=== PATIENT | male | born 1940 | race Caucasian/White ===

== ENCOUNTER 2017-12-03 23:30 | Inpatient (IN) | payer MEDICARE, BC ==
[~2017-12-03] VITALS: Ht 149.9 cm; Wt 65.4 kg
--- NOTE | ~2017-12-03 | PN ---
PATIENT:DEANNE MANCIA MEDICAL RECORD: [id number] LOCATION:[facility] ADMISSION DATE: 12/03/17 PROGRESS NOTE DATE OF SERVICE: 12/22/2017 SUBJECTIVE: The patient's case was discussed with staff. He has no new complaint. OBJECTIVE: The patient is in good behavioral control with limited insight about his condition. He does occasionally require p.r.n. Geodon as it seems to help with his agitation. ASSESSMENT: No change in diagnoses. PLAN: The patient's long-term prognosis is poor. He is going to be discharged tomorrow with hospice care. TRANSINT:[id number] Voice Confirmation ID: [id number] DOCUMENT ID: [id number] MISA ANDRE MD at 0826 CC: [id number] DICTATION DATE: 12/22/17 1416 LAW OFFICE MANAGER: 12/22/17 1534 DIS IN 12/22/17 [facility] [address] [place] [address]
--- NOTE | ~2017-12-03 | PN ---
PATIENT:DEANNE MANCIA MEDICAL RECORD: [id number] LOCATION:[facility] ADMISSION DATE: 12/03/17 PROGRESS NOTE DATE OF SERVICE: 12/19/2017 SUBJECTIVE: No new complaint. OBJECTIVE: The patient is overall better. He is taking medications as prescribed. Plans are for him to be discharged to hospice care on Friday. On exam, mood is euthymic. Affect is reserved. Speech is rather terse. Content of thought shows no overt psychosis. Sensorium shows no change. ASSESSMENT: No change in diagnosis. PLAN: 1. Maintain current medication. 2. Continue supportive therapy. TRANSINT:[id number] Voice Confirmation ID: [id number] DOCUMENT ID: [id number] DAGOBERTO MEI III, MD at 0703 CC: [id number] DICTATION DATE: 12/19/17 1003 SALES FLOOR ASSOCIATE: 12/19/17 1113 ADM IN [place] [id number] [place] [id number]
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
--- NOTE | ~2017-12-03 | PN ---
PATIENT:DEANNE MANCIA MEDICAL RECORD: [id number] LOCATION:[facility] ADMISSION DATE: 12/03/17 PROGRESS NOTE DATE OF SERVICE: 12/09/2017 SUBJECTIVE: The patient's case was discussed with staff. He has no new complaint. OBJECTIVE: The patient is in good behavioral control with limited insight about his condition. He generally tolerates his medicines well. ASSESSMENT: No change in diagnoses. PLAN: The patient was agitated this morning and required p.r.n. Vicdon. I am going to prescribe Trilafon for him at a dose of 2 mg at bedtime. His long-term prognosis is guarded. I am concerned about his oral intake. He says he will try to eat more. TRANSINT:[id number] Voice Confirmation ID: [id number] DOCUMENT ID: [id number] MISA ANDRE MD at 1218 CC: [id number] DICTATION DATE: 12/09/17 1448 SENIOR MECHANICAL PROJECT ENGINEER: 12/09/17 1459 ADM IN [place] [id number] [place] [id number]
--- NOTE | ~2017-12-03 | PN ---
PATIENT:DEANNE MANCIA MEDICAL RECORD: [id number] LOCATION:[facility] ADMISSION DATE: 12/03/17 PROGRESS NOTE DATE OF SERVICE: 12/08/2017 SUBJECTIVE: The patient's case was discussed with staff. He has no new complaint. OBJECTIVE: The patient is impulsive and labile. He is very difficult to redirect. ASSESSMENT: No change in diagnoses. PLAN: The patient's Depakote is going to be increased to 500 mg twice daily. I am also going to start him on Megace for its appetite stimulating properties. His long-term prognosis is guarded. TRANSINT:[id number] Voice Confirmation ID: [id number] DOCUMENT ID: [id number] MISA ANDRE MD at 1344 CC: [id number] DICTATION DATE: 12/08/17 1425 RETAIL OPERATIONS MANAGER: 12/08/17 1446 ADM IN [facility] [address] [place] [id number]
--- NOTE | ~2017-12-03 | PN ---
PATIENT:DEANNE MANCIA MEDICAL RECORD: [id number] LOCATION:[facility] ADMISSION DATE: 12/03/17 PROGRESS NOTE DATE OF SERVICE: 12/16/2017 SUBJECTIVE: The patient's case was discussed with staff. He has no new complaint. OBJECTIVE: The patient is in good behavioral control with limited insight about his condition. He does tolerate his medicines well. ASSESSMENT: No change in diagnoses. PLAN: Brief supportive and educational interventions were made. Long-term prognosis is guarded. TRANSINT:[id number] Voice Confirmation ID: [id number] DOCUMENT ID: [id number] MISA ANDRE MD at 1444 CC: [id number] DICTATION DATE: 12/16/17 1517 CORRECTIONAL CASE MANAGER: 12/16/17 1529 ADM IN [place] [id number] [place] [id number]
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
--- NOTE | ~2017-12-03 | PN ---
PATIENT:DEANNE MANCIA MEDICAL RECORD: [id number] LOCATION:[facility] ADMISSION DATE: 12/03/17 PROGRESS NOTE DATE OF SERVICE: 12/10/2017 SUBJECTIVE: The patient's case was discussed with staff. He has no new complaint. OBJECTIVE: The patient is in good behavioral control. He has no thoughts of harming himself or others. He does tolerate his medicines well. ASSESSMENT: No change in diagnoses. PLAN: Supportive and educational interventions were made. Long-term prognosis is guarded. TRANSINT:[id number] Voice Confirmation ID: [id number] DOCUMENT ID: [id number] MISA ANDRE MD at 1341 CC: [id number] DICTATION DATE: 12/10/17 1234 MECHANICAL SOUND TECHNICIAN: 12/10/17 1246 ADM IN [place] [id number] [place] [address]
--- NOTE | ~2017-12-03 | PN ---
PATIENT:DEANNE MANCIA MEDICAL RECORD: [id number] LOCATION:[facility]idal112 ADMISSION DATE: 12/03/17 PROGRESS NOTE DATE OF SERVICE: 12/18/2017 SUBJECTIVE: The patient's case was discussed with staff. He has no new complaint. OBJECTIVE: The patient denies intent to harm himself or others. He is severely impaired cognitively. He has had multiple p.r.n. doses of medication because of his agitation. ASSESSMENT: No change in diagnoses. PLAN: Current medicines have been reviewed and will be maintained. I am going to check another Depakote level to ensure that it is at an adequate dose. TRANSINT:[id number] Voice Confirmation ID: [id number] DOCUMENT ID: [id number] MISA ANDRE MD at 0841 CC: [id number] DICTATION DATE: 12/18/17 1420 CITRIX ENGINEER: 12/18/17 1607 ADM IN [place] [address] [place] [address]
--- NOTE | ~2017-12-03 | PN ---
PATIENT:DEANNE MANCIA MEDICAL RECORD: [id number] LOCATION:[facility] ADMISSION DATE: 12/03/17 PROGRESS NOTE DATE OF SERVICE: 12/12/2017 SUBJECTIVE: No new complaint. OBJECTIVE: The patient continues to show evidence of significant dementia. He has great difficulty cooperating with staff. He has been combative and had to be redirected from this. On exam, mood is restless and irritable. Affect is very shallow. Speech is quite terse. Content of thought appears to be focused primarily on somatic concerns. Sensorium shows no change. ASSESSMENT: No change in diagnosis. PLAN: 1. Continue current medication. 2. Continue supportive therapy. TRANSINT:[id number] Voice Confirmation ID: [id number] DOCUMENT ID: [id number] DAGOBERTO MEI III, MD at 1037 CC: [id number] DICTATION DATE: 12/12/17 1116 IT LEAD: 12/12/17 1259 ADM IN [place] [id number] [place] [address]
--- NOTE | ~2017-12-03 | PN ---
PATIENT:DEANNE HENDRICKS MEDICAL RECORD: [id number] LOCATION:[facility]112 ADMISSION DATE: 12/03/17 PROGRESS NOTE DATE OF SERVICE: 12/11/2017 SUBJECTIVE: The patient's case was discussed with staff. He has no new complaint. OBJECTIVE: The patient is in good behavioral control with limited insight about his condition. He tolerates his medicines well. ASSESSMENT: No change in diagnoses. PLAN: The patient was aggressive today. I am going to check a Depakote level. I think the medicines he is on may become more efficacious if given a little bit longer. Yesterday after I already documented on the patient, I had a 30-minute phone call with his , Ms. Alma Hendricks. She is having a great deal of difficulty accepting that the patient's condition cannot be reversed and I think that is very unlikely. I recommended she take him to [facility], but she indicated he has been there and they have told her the same thing I have. I do not know what to say about that except that it certainly is a sad situation. I have offered to assist her in making arrangements for additional evaluations if she thinks that would be helpful. She cried extensively and said she will talk about it with her daughters. It is my opinion that yes this patient's condition has been complicated by neurosurgery, but there almost certainly was a preexisting dementia and whatever the relative mix of head injury from surgery and fall versus preexisting dementia symptoms is difficult to say. I am sure it is a mixed bag, but the bottom line in my opinion is that this is a very advanced condition with little or nothing that can be done to improve it other than bringing him in to behavioral control pharmacologically so that he can be managed either at home or in a retirement setting. The wants to take him home, which of course is fine. I have discussed the relative risks and benefits of this with her and I think it is probably time for her to have some sort of mental health counseling given her degree of distress and unwillingness to accept her 's condition. I did not suggest that to her at this time because it might have been taken as inflammatory, but I will do so directly or through the child welfare social worker. She clearly is not coming to packing machine tender with the condition that is not new. TRANSINT:[id number] Voice Confirmation ID: [id number] DOCUMENT ID: [id number] MISA ANDRE MD at 0804 CC: [id number] DICTATION DATE: 12/11/17 1415 SERVOMECHANISM ASSEMBLER: 12/11/17 1642 ADM IN [place] [id number] [place] [id number]
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
--- NOTE | ~2017-12-03 | PN ---
PATIENT:DEANNE MANCIA MEDICAL RECORD: [id number] LOCATION:[facility]112 ADMISSION DATE: 12/03/17 PROGRESS NOTE DATE OF SERVICE: 12/15/2017 SUBJECTIVE: The patient's case was discussed with staff. He has no new complaint. OBJECTIVE: The patient is severely impaired cognitively. He is not eating or sleeping well. He has almost no cognition present. His family continues to feel that this is not dementia, that it is somehow psychiatric. Apparently, he has had fairly extensive evaluations and HAS BEEN DEEMED TO BE ALLERGIC TO ZYPREXA, HALDOL, SEROQUEL, AND ATIVAN indicating that multiple individuals or attempts have been made to treat his behaviors. It is my opinion that he likely had a significant dementia present prior to having the cerebral aneurysm and that the subsequent subdural hematoma and minesh hole procedure were additional insult that damaged and already impaired brain. There is no evidence of anything acute toxic, metabolic, or delirious about his condition. As unfortunate as it is it does appear that this brain injured gentleman is not likely to experience significant improvement. The goal for treatment here is to make him manageable to those who want to care for him. The and 3 daughters had a very long meeting with our social work associate and Dr. Montalvo today. They seem to have a better grasp on his condition, although their acceptance of this is still not entirely clear. Offers were made to discharge him or assist in transferring him to another facility as I made the same offer last week. The patient has already been to [facility] and they felt there was nothing else they could do and sent him to [facility] for rehabilitative services. The patient is not capable of participating in rehabilitative services and it continues to be my opinion that his situation is irreversible and that palliative or hospice care measures are appropriate. TRANSINT:[id number] Voice Confirmation ID: [id number] DOCUMENT ID: [id number] MISA ANDRE MD at 1016 CC: [id number] DICTATION DATE: 12/15/171907 DIRECTOR FOOD AND BEVERAGE: 12/16/17 0334 ADM IN [facility] [address] [place] [address]
--- NOTE | ~2017-12-03 | PN ---
PATIENT:DEANNE MANCIA MEDICAL RECORD: [id number] LOCATION:[facility] ADMISSION DATE: 12/03/17 PROGRESS NOTE DATE OF SERVICE: 12/17/2017 SUBJECTIVE: The patient's case was discussed with staff. He has no new complaint. OBJECTIVE: The patient is in better behavioral control, but continues to have poor oral intake. ASSESSMENT: No change in diagnoses. PLAN: The patient is going to go home with hospice as soon as hospice and family can make the necessary arrangements. He is talking a little better, but is still not eating and is obviously severely impaired cognitively. TRANSINT:[id number] Voice Confirmation ID: [id number] DOCUMENT ID: [id number] MISA ANDRE MD at 1403 CC: [id number] DICTATION DATE: 12/17/17 1453 DRIVER/SALES WORKERS: 12/17/17 1603 ADM IN [facility] [address] [place] [id number]
--- NOTE | ~2017-12-03 | PN ---
PATIENT:DEANNE MANCIA MEDICAL RECORD: [id number] LOCATION:[facility] ADMISSION DATE: 12/03/17 PROGRESS NOTE DATE OF SERVICE: 12/05/2017 SUBJECTIVE: No new complaint. OBJECTIVE: The patient has continued to show aggressive and occasionally combative behavior. The patient has a past history of traumatic brain injury and resultant dementia. He has been placed on Geodon as well as Depakote as of yesterday. On exam, mood is irritable. Affect is very shallow. Speech is tangential and nonfocused. Content of thought is unchanged. Sensorium unchanged. ASSESSMENT: No change in diagnosis. PLAN: 1. Maintain current medication treatment plan. 2. Continue supportive therapy. TRANSINT:[id number] Voice Confirmation ID: [id number] DOCUMENT ID: [id number] DAGOBERTO MEI III, MD at 1341 CC: [id number] DICTATION DATE: 12/05/17 1147 BUSINESS INFORMATION CONSULTANT: 12/05/17 1153 ADM IN [place] [id number] [place] [id number]
[~2017-12-03 23:30] MED LIST: NEURONTIN 300300 MG PO
[2017-12-03] MEDS ORDERED: CARDURA1 MG PO (23:55)
[2017-12-03] MEDS ORDERED: DEPAKOTE ER250 MG PO (23:57)
[2017-12-03] MEDS ORDERED: GABAPENTIN100 MG PO (23:59)
[2017-12-04] MEDS ORDERED: LIPITOR20 MG PO
[2017-12-04] MEDS ORDERED: MELATONIN 3 MG1 TAB PO (00:01)
[2017-12-04] MEDS ORDERED: OMEPRAZOLE40 MG PO (00:23)
[2017-12-04] MEDS ORDERED: COLACE100 MG PO (00:24)
[2017-12-04] MEDS ORDERED: KEPPRA SOLU100 MG/ML PO (00:25)
[2017-12-04] MEDS ORDERED: ENULOSE10 G/15 ML PO (00:26)
[2017-12-04 03:00] VITALS: BP 147/88
[2017-12-04 04:31] LABS: APPEARANCE CLEAR (CLEAR); BILIRUBIN NEGATIVE (NEGATIVE); COLOR YELLOW (YELLOW); GLUCOSE NEGATIVE (NEGATIVE); KETONE NEGATIVE (NEGATIVE); NITRITE NEGATIVE (NEGATIVE); PROTEIN NEGATIVE (NEGATIVE); UROBILINOGEN NORMAL (NORMAL)
[2017-12-04 04:34] LABS: BACTERIA FEW /hpf (NONE SEEN); EPITHELIAL CELLS 0-5 /hpf (0-5); MUCUS <1+ /lpf (NONE SEEN); RED CELLS - URINE 0-5 /hpf (0-5); WHITE CELLS - URINE 0-5 /hpf (0-5)
[2017-12-04 08:11] VITALS: BP 101/65
[2017-12-04 10:34] LABS: ALBUMIN 3.3 g/dL (3.4-5.0); ALKALINE PHOSPHATASE 115 U/L (46-116); ALT (SGPT) 25 U/L (10-68); BILIRUBIN - TOTAL 0.58 mg/dL (0.2-1.3); CALC OSMOLALITY 281 mosm/kg (275-300); CALCIUM 8.9 mg/dL (8.5-10.1); CARBON DIOXIDE 29.6 mmol/L (21.0-32.0); CHLORIDE - SERUM 105 mmol/L (98-107); CHOL - HDL RATIO 2.2 ratio (2.3-4.9); CHOLESTEROL, TOTAL 146 mg/dL (0-200); CREATININE - SERUM 0.9 mg/dL (0.6-1.3); GLUCOSE 92 mg/dL (74-106); HDL CHOLESTEROL 67 mg/dL (32-96); LDL CHOLESTEROL 71 mg/dL (0-100); LDL-HDL RATIO 1.1 ratio (1.5-3.5); POTASSIUM - SERUM 3.8 mmol/L (3.5-5.1); PROTEIN - SERUM 7.2 g/dL (6.4-8.2); SODIUM 142 mmol/L (136-145); THYROID STIMULATING HORMONE 0.67 uIU/mL (0.36-3.74); TRIGLYCERIDE 44 mg/dL (30-200); UREA NITROGEN 11 mg/dL (7-18); eGFR NON AFRICAN AMERICAN 87 mL/min (90-120)
[2017-12-04 10:35] LABS: BASOPHILS 0.3 % (0-2); EOSINOPHILS 0.5 % (0-7); HEMATOCRIT 44.1 % (42.0-54.0); HEMOGLOBIN 14.3 g/dL (13.5-17.5); IMMATURE GRANULOCYTES 0.1 % (0-5); LYMPHOCYTES 14.9 % (15-50); MCH 30.2 pg (26.0-34.0); MCHC 32.4 g/dL (31.0-37.0); MCV 93.2 fL (80.0-100.0); MEAN PLATELET VOLUME 10.6 fL (7.4-10.4); MONOCYTES 5.5 % (2-11); NEUTROPHILS 78.7 % (40-80); PLATELET COUNT 218 10x3/uL (130-400); RBC 4.73 10x6/uL (4.20-6.10); RDW 13.1 % (11.5-14.5); WBC 7.6 10x3/uL (4.8-10.8)
[2017-12-04 20:13] VITALS: BP 166/82
[2017-12-05 06:13] LABS: RAPID PLASMA REAGIN Non Reactive (Non Reactive)
[2017-12-05 08:16] LABS: FOLATE (FOLIC ACID) - SERUM 18.1 ng/mL (>3.0)
[2017-12-05 10:17] LABS: VITAMIN D 25 HYDROXY 31.4 ng/mL (30.0-100.0)
[2017-12-06 12:49] VITALS: BP 128/82
[2017-12-07 07:00] VITALS: BP 148/77
[2017-12-07 21:12] VITALS: BP 122/58
[2017-12-08 07:28] VITALS: BP 121/68
[2017-12-08 21:22] VITALS: BP 131/66
[2017-12-09 09:45] VITALS: BP 100/44
[2017-12-09 19:41] VITALS: BP 127/69
[2017-12-10 08:54] VITALS: BP 107/76
[2017-12-11 22:50] VITALS: BP 114/62
[2017-12-12 09:45] VITALS: BP 136/76
[2017-12-12 19:20] VITALS: BP 120/56
[2017-12-13 09:41] VITALS: BP 150/74
[2017-12-13 20:49] VITALS: BP 156/70
[2017-12-13 22:25] LABS: BASOPHILS 0.1 % (0-2); EOSINOPHILS 1.1 % (0-7); HEMATOCRIT 46.2 % (42.0-54.0); HEMOGLOBIN 15.3 g/dL (13.5-17.5); IMMATURE GRANULOCYTES 0.4 % (0-5); MCH 30.2 pg (26.0-34.0); MCHC 33.1 g/dL (31.0-37.0); MCV 91.3 fL (80.0-100.0); MEAN PLATELET VOLUME 11.3 fL (7.4-10.4); MONOCYTES 10.3 % (2-11); NEUTROPHILS 61.1 % (40-80); PLATELET COUNT 178 10x3/uL (130-400); RBC 5.06 10x6/uL (4.20-6.10); RDW 12.9 % (11.5-14.5); WBC 7.5 10x3/uL (4.8-10.8)
[2017-12-13 22:40] LABS: ALKALINE PHOSPHATASE 108 U/L (46-116); ALT (SGPT) 34 U/L (10-68); BILIRUBIN - DIRECT 0.03 mg/dL (0.00-0.30); BILIRUBIN - INDIRECT 0.47 mg/dL (0.00-1.00); CALC OSMOLALITY 287 mosm/kg (275-300); CARBON DIOXIDE 28.2 mmol/L (21.0-32.0); CHLORIDE - SERUM 107 mmol/L (98-107); CREATININE - SERUM 0.8 mg/dL (0.6-1.3); GLUCOSE 94 mg/dL (74-106); POTASSIUM - SERUM 5.6 mmol/L (3.5-5.1); PROTEIN - SERUM 6.8 g/dL (6.4-8.2); SODIUM 143 mmol/L (136-145); UREA NITROGEN 21 mg/dL (7-18); VALPROIC ACID (DEPAKOTE) 36.5 ug/mL (50.0-100.0); eGFR NON AFRICAN AMERICAN > 90 mL/min (90-120)
[2017-12-14 07:00] VITALS: BP 127/68
[2017-12-14 19:25] VITALS: BP 140/45
[2017-12-15 20:09] VITALS: BP 121/69
[2017-12-16 07:00] VITALS: BP 144/91
[2017-12-16] MEDS ORDERED: MEGACE40 MG PO (10:11)
[2017-12-16] MEDS ORDERED: DEPAKOTE SPRIN125 MG PO (10:12)
[2017-12-16] MEDS ORDERED: VITAMIN D5000 UNIT PO (10:14)
[2017-12-16] MEDS ORDERED: FLORAJEN3 CAPS460 MG PO (10:14)
[2017-12-16 19:57] VITALS: BP 143/69
[2017-12-17 07:27] VITALS: BP 100/74
[2017-12-17 13:42] VITALS: Ht 149.9 cm; Wt 65.4 kg
[2017-12-18 06:37] LABS: APPEARANCE CLEAR (CLEAR); BILIRUBIN NEGATIVE (NEGATIVE); COLOR YELLOW (YELLOW); GLUCOSE NEGATIVE (NEGATIVE); KETONE MODERATE mg/dL (NEGATIVE); NITRITE NEGATIVE (NEGATIVE); PROTEIN NEGATIVE (NEGATIVE); UROBILINOGEN NORMAL (NORMAL)
[2017-12-18 10:04] VITALS: BP 142/72
[2017-12-18 20:52] VITALS: BP 128/56
[2017-12-19 07:59] VITALS: BP 117/75
[2017-12-19 20:32] VITALS: BP 106/59
[2017-12-20 07:44] VITALS: BP 131/76
[2017-12-21 07:00] VITALS: BP 108/62
== END 2017-12-22 14:00 | disposition home health service (06) | DRG 57 ==
LOC: D.PSYCH 23:30
PROVIDERS: Family Medicine; Psychiatry & Neurology Psychiatry
DX: G30.1 Alzheimer's disease with late onset (principal); F02.81 Dementia in other diseases classified elsewhere, unspecified severity, with behavioral disturbance; N39.0 Urinary tract infection, site not specified; Z87.820 Personal history of traumatic brain injury; E78.5 Hyperlipidemia, unspecified; K21.9 Gastro-esophageal reflux disease without esophagitis; I10 Essential (primary) hypertension; Z74.09 Other reduced mobility; K59.00 Constipation, unspecified; N40.0 Benign prostatic hyperplasia without lower urinary tract symptoms; F41.9 Anxiety disorder, unspecified; K76.89 Other specified diseases of liver; B37.2 Candidiasis of skin and nail; B95.2 Enterococcus as the cause of diseases classified elsewhere; L89.152 Pressure ulcer of sacral region, stage 2; Z91.81 History of falling; Z87.891 Personal history of nicotine dependence